=== PATIENT | male | born 1990 | race African-American/Black ===

== ENCOUNTER 2017-11-10 12:58 | Emergency (ER) | payer SELFPAY ==
[~2017-11-10] VITALS: Ht 188 cm; Wt 95.0 kg
[2017-11-10 15:14] VITALS: BP 127/72
== END 2017-11-10 16:21 | disposition left against medical advice (07) ==
LOC: ER 12:58
DX: H02.844 Edema of left upper eyelid (principal)
CPT/HCPCS: 99281

== ENCOUNTER 2017-11-11 10:59 | Emergency (ER) | payer SELFPAY ==
[~2017-11-11] VITALS: Ht 185.4 cm; Wt 95.0 kg
[2017-11-11 11:02] VITALS: BP 104/71
== END 2017-11-11 12:00 | disposition home or self-care (01) ==
LOC: ER 11:30
DX: H00.024 Hordeolum internum left upper eyelid (principal); Z98.890 Other specified postprocedural states
CPT/HCPCS: 99283

== ENCOUNTER 2018-03-15 11:18 | Emergency (ER) | payer BC ==
[~2018-03-15] VITALS: Ht 188 cm; Wt 59.0 kg
[2018-03-15] MEDS ORDERED: ALBUTEROL (0.083%) 2.5MG/3ML NEB HHN STA ×2 (12:28→12:51)
[2018-03-15] MEDS ORDERED: IPRATROPIUM BROMIDE (0.02%) 0.5MG/2.5ML NEB HHN STA ×2 (12:28→12:51)
[2018-03-15] MEDS ORDERED: PREDNISONE 20MG TABLET PO STA (12:28)
[2018-03-15 13:14] VITALS: BP 133/86
== END 2018-03-15 13:16 | disposition home or self-care (01) ==
LOC: ER 11:18
DX: J45.901 Unspecified asthma with (acute) exacerbation (principal); Z98.890 Other specified postprocedural states
CPT/HCPCS: 94640; 99283; J7512; J7611